=== PATIENT | male | born 1940 | race Caucasian/White ===

== ENCOUNTER 2024-08-06 01:15 | Emergency (ER) | payer MEDICARE, OTHER, SELFPAY ==
[2024-08-06] MEDS ORDERED: Lidocaine 4% Patch ONE (02:44)
[2024-08-06] MEDS ORDERED: Acetaminophen 500 MG TAB ONE (02:44)
[2024-08-06] MEDS ORDERED: Methocarbamol 500 MG TAB ONE (02:44)
== END 2024-08-06 03:00 | disposition home or self-care (01) ==
LOC: CSHERS 01:15
DX: S33.5XXA Sprain of ligaments of lumbar spine, initial encounter (principal); E03.9 Hypothyroidism, unspecified; E78.5 Hyperlipidemia, unspecified; I10 Essential (primary) hypertension; X50.0XXA Overexertion from strenuous movement or load, initial encounter
CPT/HCPCS: 99283